=== PATIENT | female | born 2000 | race Caucasian/White ===

== ENCOUNTER 2018-08-30 16:41 | Emergency (ER) | payer MEDICAID ==
[2018-08-30 16:53] VITALS: BP 126/70
--- NOTE | 2018-08-30 17:37 | ER Document Report ---
HPI - HPI Patient complains to provider of: Teeth pain, medication refill, UTI symptoms Pain Level: 3 Context: 18-year-old female moved to [place] 2 weeks ago without her bag of medicines that she left in [place]. She has a extensive psychiatric history with anxiety, depression, bipolar, and poly-substance abuse. She has not had her psychiatric medicine for 2 weeks. She feels some anxiety and depression but she denies being suicidal, no suicide ideation, and she denies being homicidal. She is asking for all her medications to be refilled. She also took her last Suboxone 2 days ago and is having diarrhea. She also wants a prescription for Suboxone. She denies substance abuse or alcohol at this time. She does smoke cigarettes which she has with her. She is also complaining of dysuria frequency and urgency. No vaginal discharge or odor. Also she states that her third molars are coming in and causing pain. She wants a referral to a dentist. Her mother cannot send her her medications because her mother is a "drug addict". Associated Symptoms: Other - See above Exacerbated by: Denies Relieved by: Denies Similar symptoms previously: Yes Recently seen / treated by doctor: No - She was hospitalized until 2 months ago in [place] - ROS ROS below otherwise negative: Yes Systems Reviewed and Negative: Yes All other systems reviewed and negative - GASTROINTESTINAL Gastrointestinal: REPORTS: Diarrhea - URINARY Urinary: REPORTS: Dysuria, Urgency, Frequency Past Medical History - General Information source: Patient - Social History Smoking Status: Current Every Day Smoker Chew tobacco use (# tins/day): No Frequency of alcohol use: Rare Drug Abuse: None - recently, Other - She is to take whatever she can get her hands on Occupation: Unemployed Lives with: Friend Family History: Other - Drug addiction Patient has suicidal ideation: No Patient has homicidal ideation: No - Medical History Notes: Polysubstance abuse Psychiatric Medical History: Reports: Hx Anxiety, Hx Bipolar Disorder, Hx Depression Surgical Hx: Negative Vertical Provider Document - CONSTITUTIONAL Agree With Documented VS: Yes - INFECTION CONTROL TRAVEL OUTSIDE OF THE [place] IN LAST 30 DAYS: No - HEENT HEENT: Normal ENT Exam - NECK Neck: Supple - RESPIRATORY Respiratory: Breath Sounds Normal, No Respiratory Distress - CARDIOVASCULAR Cardiovascular: Regular Rate, Regular Rhythm - GI/ABDOMEN Gastrointestinal: Abdomen Soft, Abdomen Non-Tender, No Organomegaly - MUSCULOSKELETAL/EXTREMETIES Musculoskeletal/Extremeties: MAEW - NEURO Level of Consciousness: Awake, Alert, Appropriate Notes: Left eye tic noted - DERM Integumentary: No Rash Course - Vital Signs Vital signs: Temp Pulse Resp BP Pulse Ox 98.8 F 88 14 126/70 H 98 08/30/18 16:52 08/30/18 16:52 08/30/18 16:52 08/30/18 16:52 08/30/18 16:52 Discharge - Discharge Clinical Impression: Molar eruption pain, Diarrhea, Anxiety and depression Urinary tract infection Qualifiers: Urinary tract infection type: acute cystitis Hematuria presence: without hematuria Qualified Code(s): N30.00 - Acute cystitis without hematuria Condition: Good Disposition: HOME, SELF-CARE Instructions: [facility], Cephalexin ([facility]), Urinary Tract Infection ([facility]) Additional Instructions: You have been given all of the mental health resources in [place] information sheet You have been given information about the [place] treatment center that dispenses and prescribes Suboxone Return to the emergency room if you have any signs of suicidal ideation or worsening depression See the [facility] for dental care Urine culture is pending Cephalexin 4 times a day for a week for the urinary tract infection Prescriptions: Cephalexin Monohydrate [Keflex 500 mg Capsule] 500 mg PO QID #28 capsule
[2018-08-30 17:38] LABS: APPEARANCE,URINE CLOUDY; BILIRUBIN,URINE NEGATIVE (NEGATIVE); COLOR,URINE YELLOW; GLUCOSE, URINE NEGATIVE (NEGATIVE); KETONES,URINE TRACE mg/dL (NEGATIVE); LEUKOCYTE ESTERASE,URINE LARGE (NEGATIVE); NITRITE,URINE NEGATIVE (NEGATIVE); PROTEIN,URINE 30 mg/dL (NEGATIVE); URINE SPECIFIC GRAVITY 1.026; UROBILINOGEN,URINE NEGATIVE mg/dL (<2.0)
== END 2018-08-30 17:56 | disposition home or self-care (01) ==
LOC: ER 16:41
DX: N30.00 Acute cystitis without hematuria (principal); K08.89 Other specified disorders of teeth and supporting structures; F41.9 Anxiety disorder, unspecified; F32.9 Major depressive disorder, single episode, unspecified; R30.0 Dysuria; R35.0 Frequency of micturition; R39.15 Urgency of urination; F17.210 Nicotine dependence, cigarettes, uncomplicated
CPT/HCPCS: 81001; 87086; 87088; 87186; 99283